=== PATIENT | female | born 1960 | race American Indian/Alaskan Native ===

== ENCOUNTER 2018-07-18 19:35 | Emergency (ER) | payer OTHER ==
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
[2018-07-19] MEDS ORDERED: TORADOL IM ONE (00:26)
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
[2018-07-19] MEDS ORDERED: TORADOL ONE (00:45)
[2018-07-19 01:45] VITALS: BP 150/80
== END 2018-07-19 01:45 | disposition home or self-care (01) ==
LOC: ED 19:35
DX: S16.1XXA Strain of muscle, fascia and tendon at neck level, initial encounter (principal); S29.019A Strain of muscle and tendon of unspecified wall of thorax, initial encounter; I10 Essential (primary) hypertension; Z90.711 Acquired absence of uterus with remaining cervical stump; Z88.8 Allergy status to other drugs, medicaments and biological substances; V49.49XA Driver injured in collision with other motor vehicles in traffic accident, initial encounter; Y93.89 Activity, other specified; Y92.89 Other specified places as the place of occurrence of the external cause; Y99.8 Other external cause status
CPT/HCPCS: 72040; 96372; 99283; J1885

== ENCOUNTER 2018-11-19 19:32 | Emergency (ER) | payer BC, OTHER ==
[2018-11-19 19:39] VITALS: BP 123/75
[2018-11-19] MEDS ORDERED: IBUPROFEN PO ONE (20:01)
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
== END 2018-11-19 20:26 | disposition home or self-care (01) ==
LOC: ED 19:32
DX: S16.1XXA Strain of muscle, fascia and tendon at neck level, initial encounter (principal); I10 Essential (primary) hypertension; Z90.710 Acquired absence of both cervix and uterus; Z91.09 Other allergy status, other than to drugs and biological substances; V89.0XXA Person injured in unspecified motor-vehicle accident, nontraffic, initial encounter; Y93.89 Activity, other specified; Y99.8 Other external cause status; Y92.410 Unspecified street and highway as the place of occurrence of the external cause
CPT/HCPCS: 99282